=== PATIENT | female | born 1955 | race African-American/Black ===

== ENCOUNTER 2023-03-07 09:14 | Emergency (ER) | payer MEDICARE ==
[~2023-03-07] VITALS: Ht 167.6 cm; Wt 82.8 kg
[2023-03-07] MEDS ORDERED: HYDROCHLOROTHIA25 MG PO (09:50)
[2023-03-07] MEDS ORDERED: ASPIRIN EC81 MG PO (09:50)
[2023-03-07] MEDS ORDERED: LEVEMIR100 UNIT/1 SQ ×2 (09:50)
[2023-03-07] MEDS ORDERED: ZETONNA6.1 GM (09:50)
[2023-03-07] MEDS ORDERED: LOSARTAN POTAS100 MG PO (09:50)
[2023-03-07] MEDS ORDERED: ONE DAILY HEAL1 EACH (09:50)
[2023-03-07] MEDS ORDERED: APPLE CIDER VI300 MG (09:50)
[2023-03-07] MEDS ORDERED: COREG6.25 MG PO (09:50)
[2023-03-07] MEDS ORDERED: ATORVASTATIN CA20 MG PO (09:50)
[2023-03-07] MEDS ORDERED: ACETAMINOPHEN 325 MG TAB ONE (11:25)
[2023-03-07] MEDS ORDERED: ACETAMINOPHEN 325 MG TAB PO ONE (11:30)
[2023-03-07 11:31] VITALS: O2SAT 100
[2023-03-07] MEDS ORDERED: CYCLOBENZAPRINE5 MG PO (11:43)
== END 2023-03-07 11:54 | disposition home or self-care (01) ==
LOC: FSED 09:28
DX: M54.12 Radiculopathy, cervical region (principal); I12.0 Hypertensive chronic kidney disease with stage 5 chronic kidney disease or end stage renal disease; E11.22 Type 2 diabetes mellitus with diabetic chronic kidney disease; N18.6 End stage renal disease; Z99.2 Dependence on renal dialysis; E78.5 Hyperlipidemia, unspecified
CPT/HCPCS: 72050; 99283

== ENCOUNTER 2024-02-03 19:32 | Emergency (ER) | payer MEDICARE ==
[~2024-02-03] VITALS: Ht 165.1 cm; Wt 85.7 kg
[~2024-02-03 19:32] MED LIST: APPLE CIDER VI300 MG; ASPIRIN EC81 MG PO; ATORVASTATIN CA20 MG PO; COREG6.25 MG PO; CYCLOBENZAPRINE5 MG PO; HYDROCHLOROTHIA25 MG PO; LEVEMIR100 UNIT/1 SQ; LOSARTAN POTAS100 MG PO; ONE DAILY HEAL1 EACH; ZETONNA6.1 GM
[2024-02-03] MEDS: ACETAMINOPHEN 325 MG TAB PO ONE (20:11)
[2024-02-03] MEDS: BACITRACIN ZINC 0.9GM TP ONE (20:11)
[2024-02-03] MEDS ORDERED: ACETAMINOPHEN 325 MG TAB ONE (20:13)
[2024-02-03] MEDS ORDERED: PENICILLIN V P500 MG PO (21:24)
[2024-02-03 21:25] VITALS: O2SAT 97
== END 2024-02-03 21:40 | disposition home or self-care (01) ==
LOC: FSED 19:35
DX: S62.112A Displaced fracture of triquetrum [cuneiform] bone, left wrist, initial encounter for closed fracture (principal); W01.0XXA Fall on same level from slipping, tripping and stumbling without subsequent striking against object, initial encounter; Y93.01 Activity, walking, marching and hiking; Y92.89 Other specified places as the place of occurrence of the external cause; I12.0 Hypertensive chronic kidney disease with stage 5 chronic kidney disease or end stage renal disease; E11.22 Type 2 diabetes mellitus with diabetic chronic kidney disease; N18.6 End stage renal disease; Z99.2 Dependence on renal dialysis; E78.5 Hyperlipidemia, unspecified
CPT/HCPCS: 99284

== ENCOUNTER 2024-07-18 04:02 | Emergency (ER) | payer MEDICARE ==
[~2024-07-18] VITALS: Ht 167.6 cm; Wt 89.8 kg
[~2024-07-18 04:02] MED LIST changes: +PENICILLIN V P500 MG PO
[2024-07-18 04:15] VITALS: PULSE 84; RESP 18; TEMP 98.6
[2024-07-18 06:45] VITALS: BP 144/75; PULSE 82; RESP 18; TEMP 98.6; O2SAT 96
== END 2024-07-18 06:45 | disposition home or self-care (01) ==
LOC: FSED 04:08
DX: M79.661 Pain in right lower leg (principal); S86.811A Strain of other muscle(s) and tendon(s) at lower leg level, right leg, initial encounter; M62.838 Other muscle spasm; I12.0 Hypertensive chronic kidney disease with stage 5 chronic kidney disease or end stage renal disease; E11.22 Type 2 diabetes mellitus with diabetic chronic kidney disease; E11.65 Type 2 diabetes mellitus with hyperglycemia; N18.6 End stage renal disease; Z99.2 Dependence on renal dialysis; E78.5 Hyperlipidemia, unspecified
CPT/HCPCS: 80053; 85025; 93971; 99283